=== PATIENT | male | born 1970 | race Caucasian/White ===

== ENCOUNTER 2019-02-17 22:20 | Emergency (ER) | payer OTHER ==
[~2019-02-17] VITALS: Ht 188 cm; Wt 108.9 kg
--- NOTE | ~2019-02-17 | EMS ---
[address] [address] EMS Patient Care Report Name: DENALORI AVILA Room #: REG JAIME Goldman#: [id number] Admission: 02/17/19 Attend Phys: Discharge: Date of : 74 Report #: [id number] THIS REPORT FOR: //name// Report Transmitted: 02/17/2019 22:52 EMS Care Summary [facility] MED-ACT Incident [id number] @ 02/17/2019 21:19 Incident Location [address] [place] [address] Patient LORI LU Male, 48 Years 1970 Patient Address [address] [place] [address] Patient History Epilepsy,Hypertension, Patient Allergies No known allergies, Patient Medications Lisinopril, Chief Complaint Paresthesias Disposition Transported No Lights/[place] Reason Chest Pain (Non-Traumatic) Transported To [facility] Narrative CHIEF COMPLAINT: Whole body tingling; chest pain earlier H.P.I.: Lori Lu, a 48 y.o.m., had several short episodes of sharp chest pain of [address] [address] EMS Patient Care Report Name: LORI LU Room #: REG KiahAshanti#: [id number] Admission: 02/17/19 Attend Phys: Discharge: Date of : 74 Report #: [id number] just a few seconds each. The pains were very intense. His family called EMS because of these symptoms. For us he had no chest pain complaints, but did state he felt "tingly" over most of his body. He denied shortness of breath, headache, nausea/ vomiting, visual changes. Sedrick also presented with very slow speech, visual changes (intermittent blurriness), and increased fatigue. He reported he had a seizure in care home while sleeping and fell to floor striking head on concrete. His speech issues began afterwards. He was evaluated four days ago at [facility] ED for the speech problem. His said all the tests came back negative. It was thought he was perhaps suffering effects from a concussion, or perhaps multiple concussions. 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 He was diagnosed with epilepsy while still in [place] approx. 15 years ago during his fighting years. UPON ARRIVAL: Sedrick was supine on a couch. He was awake, in no distress, being evaluated by [facility] emt's. ABC's: Airway- Patent/ maintained w/o compromise Breathing- All mechanisms intact; regular unlabored resp's noted. Circulation- No adverse circulatory conditions found. TREATMENT: None rendered/ required. DISPOSITION: Sedrick requested transport to a hospital. His , Alma, wanted him to return to . We assisted him from the downstairs to the ambulance. He was shaky while walking. We set out for and were advised they were at "high volume". I spoke of the ramifications of the situation to Sedrick, and he asked me to call his and discuss a transport destination with her. I did so, and she requested [facility]. My partner advised dispatch of the destination change and we set out for [facility]. V/S were monitored, info-only radio report made. We were directed to rm. 3. With assistance Sedrick was able to get off the stretcher and walk to the hospital bed. Juan, an RN received my report. Initial Vitals @21:58P: 86,SpO2: 99, @21:53P: 91,SpO2: 100, @22:03P: 83,SpO2: 98, @21:34P: 106,R: 18,BP: 167/94,Pain: 0/10,GCS: 15,Glucose: 96,SpO2: 98,Revised [facility] [address] [place] [address] EMS Patient Care Report Name: LORI LU Room #: REG ER M.R.#: [id number] Admission: 02/17/19 Attend Phys: Discharge: Date of : 74 Report #: [id number] Trauma: 12, @21:48P: 92,R: 16,BP: 161/114,Pain: 0/10,GCS: 15,SpO2: 99,Revised Trauma: 12, @21:35P: 105,Pain: 0/10,MO Suspected: false @21:32P: 107,R: 16,Pain: 0/10,GCS: 15, @PTAP: 106,BP: 156/88,Pain: 0/10,SpO2: 98, Assessments @21:35MENTAL:No Abnormalities,SKIN:No Abnormalities,HEENT:Head/Face: No Abnormalities,Eyes: No Abnormalities,Neck/Airway: No Abnormalities,LUNG SOUNDS:General: No Abnormalities,Left Upper: No Abnormalities,Right Upper: No Abnormalities,Left Lower: No Abnormalities,Right Lower: No Abnormalities,ABDOMEN:General: No Abnormalities,Left Upper: No Abnormalities,Right Upper: No Abnormalities,Left Lower: No Abnormalities,Right Lower: No Abnormalities,PELVIS//GI:No Abnormalities,EXTREMITIES:Left Arm: No Abnormalities,Right Arm: No Abnormalities,Left Leg: No Abnormalities,Right Leg: No Abnormalities,PULSE:NEURO:Abnormal Gait, Impression Concussion Procedures @21:3512-Lead ECGResponse: UnchangedSucceeded Timeline 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,BP: 156/88 M,PULSE: 106,RR: R,SPO2: 98 Ox,ETCO2: ,BG: ,PAIN: 0,GCS: , 21:18,Call Received 21:18,Psap Call 21:19,Dispatched 21:19,En Route 21:29,On Scene 21:30,At Patient 21:32,BP: / M,PULSE: 107,RR: 16 R,SPO2: Ox,ETCO2: ,BG: ,PAIN: 0,GCS: 15, 21:34,BP: 167/94 M,PULSE: 106,RR: 18 R,SPO2: 98 Ox,ETCO2: ,B,PAIN: 0,GCS: 15, 21:35,12-Lead ECG,Response: UnchangedSucceeded, 21:35,BP: / M,PULSE: 105,RR: R,SPO2: Ox,ETCO2: ,BG: ,PAIN: 0,GCS: , 21:48,BP: 161/114 M,PULSE: 92,RR: 16 R,SPO2: 99 Ox,ETCO2: ,BG: ,PAIN: 0,GCS: 15, 21:50,Depart Scene 21:53,BP: / M,PULSE: 91,RR: R,SPO2: 100 Ox,ETCO2: ,BG: ,PAIN: ,GCS: , 21:58,BP: / M,PULSE: 86,RR: R,SPO2: 99 Ox,ETCO2: ,BG: ,PAIN: ,GCS: , 22:03,BP: / M,PULSE: 83,RR: R,SPO2: 98 Ox,ETCO2: ,BG: ,PAIN: ,GCS: , 22:06,At Destination 22:27,Call Closed Disclaimer [facility] [address] [place] [address] EMS Patient Care Report Name: DENAAUSTINLORI Room #: REG ER M.R.#: [id number] Admission: 02/17/19 Attend Phys: Discharge: Date of : 74 Report #: [id number] v1.1 Copyright 2019 [employer] This EMS Care Summary contains data elements from the applicable legal record (which may be displayed differently). It is designed to provide pertinent information for the following purposes: continuity of care, clinical quality, and state data reporting. The complete legal record is available to ED staff and administrators of the receiving hospital in [employer] Patient Tracker. All data is provided "as is."
[~2019-02-17 22:20] MED LIST: AUGMENTIN 875875 MG PO
[2019-02-17 23:50] LABS: URINE BILIRUBIN NEGATIVE (Negative); URINE BLOOD NEGATIVE (Negative); URINE CLARITY CLEAR; URINE COLOR YELLOW; URINE GLUCOSE-RANDOM* NEGATIVE (Negative); URINE KETONES NEGATIVE (Negative); URINE LEUKOCYTES-REFLEX NEGATIVE (Negative); URINE NITRITE-REFLEX NEGATIVE (Negative); URINE PROTEIN (DIPSTICK) NEGATIVE (Negative); URINE SPECIFIC GRAVITY 1.015 (1.005-1.035); URINE UROBILINOGEN 0.2 E.U./dl (0.2-1.0)
[2019-02-17 23:52] LABS: ABSOLUTE NEUTROPHILS 4.4 thou/uL (1.4-8.2); BASOPHILS 0.9 % (0.0-2.0); EOSINOPHILS 3.7 % (0.0-3.0); HEMATOCRIT 44.2 % (42.0-52.0); LYMPHOCYTES 30.7 % (24.0-44.0); MCH 30.6 pg (26.0-34.0); MCHC 33.9 g/dL (28.0-37.0); MCV 90.2 fL (80.0-100.0); MONOCYTES 7.4 % (1.0-8.0); PLATELET COUNT 230 thou/uL (150-400); POLYS 57.3 % (36.0-66.0); RDW 13.4 % (10.5-14.5); WBC 7.7 thou/uL (4.0-11.0)
[2019-02-17 23:58] LABS: ANION GAP 8 mmol/L (7-16); BUN 15 mg/dL (7-18); CHLORIDE 104 mmol/L (98-107); CO2 28 mmol/L (21-32); GLUCOSE 110 mg/dL (74-106); POTASSIUM 4.2 mmol/L (3.5-5.1); SODIUM 140 mmol/L (136-145)
[2019-02-17 23:59] LABS: AMP/METHAMP Negative (Negative); BARBITURATES Negative (Negative); BENZODIAZEPINES Negative (Negative); COCAINE Negative (Negative); METHADONE Negative (Negative); OPIATES Negative (Negative); PCP Negative (Negative)
[2019-02-18] MEDS ORDERED: NAPROSYN500 MG PO (00:02)
[2019-02-18] MEDS ORDERED: NORFLEX100 MG PO (00:02)
[2019-02-18 00:08] LABS: ALBUMIN 3.9 g/dL (3.4-5.0); SGOT 25 U/L (15-37); SGPT 34 U/L (30-65); TOTAL BILIRUBIN 0.4 mg/dL (<0.1-1.0); TOTAL PROTEIN 7.4 g/dL (6.4-8.2); TROPONIN-I <0.06 ng/mL (<0.06)
[2019-02-18 01:10] VITALS: BP 135/76
--- NOTE | 2019-02-19 07:57 | EKG ---
[address] [place] [address] ELECTROCARDIOGRAM REPORT Name: ALYLORI FAROOQ Room #: DEP Jones#: [id number] Admission: 02/17/19 Attend Phys: Discharge: 02/18/19 Date of : 74 Report #: [id number] THIS REPORT FOR: //name// 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
== END 2019-02-18 01:10 | disposition home or self-care (01) ==
LOC: ER 22:20
PROVIDERS: Emergency Medicine
DX: R07.89 Other chest pain (principal); M54.2 Cervicalgia; I10 Essential (primary) hypertension; F17.210 Nicotine dependence, cigarettes, uncomplicated; Z88.6 Allergy status to analgesic agent

== ENCOUNTER 2021-04-05 13:30 | Emergency (ER) | payer OTHER ==
[~2021-04-05] VITALS: Ht 188 cm; Wt 109.8 kg
[~2021-04-05 13:30] MED LIST changes: +NAPROSYN500 MG PO; +NORFLEX100 MG PO
[2021-04-05 13:43] VITALS: BP 161/68
== END 2021-04-05 15:08 | disposition home or self-care (01) ==
LOC: ER 13:30
DX: S93.402A Sprain of unspecified ligament of left ankle, initial encounter (principal); I10 Essential (primary) hypertension; G40.909 Epilepsy, unspecified, not intractable, without status epilepticus; F17.210 Nicotine dependence, cigarettes, uncomplicated; F12.90 Cannabis use, unspecified, uncomplicated; Z79.899 Other long term (current) drug therapy; Z88.6 Allergy status to analgesic agent; W11.XXXA Fall on and from ladder, initial encounter; Y93.89 Activity, other specified; Y92.89 Other specified places as the place of occurrence of the external cause; Y99.8 Other external cause status